=== PATIENT | female | born 1950 | race Caucasian/White ===

== ENCOUNTER 2017-01-14 11:12 | Emergency (ER) | payer MEDICARE ==
[2017-01-14 12:03] LABS: Mean Cell Volume 90.1 fl (78-100); Mean Corpuscular Hemoglobin 29.6 pg (26-32); Mean Platelet Volume 12.6 fl (6-9.5); Platelet Count 213 K/mm3 (150-450); Red Blood Count 4.46 M/mm3 (4.1-5.4); Red Cell Distribution Width 12.7 % (11.5-14.0); White Blood Count 5.5 K/mm3 (4.0-10.5)
[2017-01-14] MEDS ORDERED: Sodium Chloride 0.9% 1000 ML 1,000 ML IV STA (12:04)
--- NOTE | 2017-01-14 12:04 | ERPHSYRPT ---
- History of Present Illness Time Seen by Provider: 01/14/17 11:55 Source: patient Exam Limitations: no limitations Patient Subjective Stated Complaint: on golfcart to go to [employer] by [place] and she just passed out did not hit her head and was not unconscious for extended period of time. she simply go out and then comes right back too Triage Nursing Assessment: patient is awake nad talking, behavior appropriate for her normal, able to ambulate with assistance. lung soudns clear, pulses equal bilateral radius Physician History: 66-year-old white female with history of diabetes hyperglycemia hypothyroidism GERD, anxiety, depression iron deficiency anemia, mentally handicapped Brought by medics patient apparently was on a parade float when she had a brief episode of syncope where she leaned her head backwards for a second and then sat back up. Patient did not fall did not hit her head. Patient's caregiver states that the patient has had episodes such as this many times and has been worked up many times and this is essentially normal thing for her. Patient has not had any fever she is not otherwise ill. Patient does move all extremities to commands and answers questions she denies any pain. Past medical history includes diabetes type 2, hyperglycemia, hypothyroidism, GERD, anxiety, depression, R deficiency anemia, patient is mentally handicapped Timing/Duration: today (just prior to arrival) Severity: mild Modifying Factors: Improves With: nothing Associated Symptoms: syncope, No nausea, No vomiting, No abdominal pain, No shortness of breath, No heartburn, No diaphoresis, No cough, No chills, No chest pain, No fever, No headaches, No loss of appetite, No malaise, No rash, No seizure, No weakness Allergies/Adverse Reactions: fluoxetine HCl [From Prozac] Allergy (Verified 01/27/15 08:40) haloperidol [From Haldol] Allergy (Verified 01/27/15 08:40) haloperidol lactate [From Haldol] Allergy (Verified 01/27/15 08:40) Home Medications: Ascorbate Calcium [Vitamin C] 500 mg PO DAILY 02/20/14 [History] Clozapine 200 mg PO HS 02/20/14 [History] Divalproex Sodium [Depakote ER] 500 mg PO TID 02/20/14 [History] Levothyroxine Sodium 50 Mcg [Synthroid 50 Mcg] 50 mcg PO DAILY 02/20/14 [ History] Metformin HCl 500 mg [Glucophage 500 MG] 500 mg PO BID 02/20/14 [History] Senna 8.6 mg [Senokot 8.6 mg] 8.6 mg PO DAILY 02/20/14 [History] Venlafaxine HCl [Effexor Xr] 300 mg PO DAILY 02/20/14 [History] Clozapine 100 mg PO DAILY 06/17/14 [History] Polyethylene Glycol 3350 [Glycolax] 119 gm PO DAILY 06/17/14 [History] Hx Tetanus, Diphtheria Vaccination/Date Given: Yes Hx Influenza Vaccination/Date Given: Yes Hx Pneumococcal Vaccination/Date Given: Yes Immunizations Up to Date: Yes - Review of Systems Constitutional: No Fever, No Chills Eyes: No Symptoms Ears, Nose, & Throat: No Symptoms Respiratory: No Cough, No Dyspnea Cardiac: Syncope, No Chest Pain, No Edema Abdominal/Gastrointestinal: No Abdominal Pain, No Nausea, No Vomiting, No Diarrhea Genitourinary Symptoms: No Dysuria Musculoskeletal: No Back Pain, No Neck Pain Skin: No Symptoms, Cellulitis, Decubiti Neurological: Other (brief syncopal episode) Psychological: No Symptoms Endocrine: No Symptoms All Other Systems: Reviewed and Negative - Past Medical History Pertinent Past Medical History: Yes Neurological History: Other ENT History: No Pertinent History Cardiac History: No Pertinent History Respiratory History: No Pertinent History Endocrine Medical History: Diabetes Type II, Hypoglycemia, Hypothyroidism, Other Musculoskeletal History: No Pertinent History GI Medical History: GERD History: No Pertinent History Psycho-Social History: Anxiety, Depression Female Reproductive Disorders: No Pertinent History Other Medical History: IRON DEFICENCY ANEAMIA. MENTALLY HANDICAPED - Past Surgical History Past Surgical History: Yes Neuro Surgical History: No Pertinent History Cardiac: No Pertinent History Respiratory: No Pertinent History Gastrointestinal: No Pertinent History Genitourinary: No Pertinent History Musculoskeletal: No Pertinent History Female Surgical History: No Pertinent History - Social History Smoking Status: Never smoker Exposure to second hand smoke: No Alcohol Use: None Drug Use: none Patient Lives Alone: No Significant Family History: no pertinent family hx - Female History Hx Now: No - Nursing Vital Signs Nursing Vital Signs: Initial Vital Signs Temperature 96.3 F 01/14/17 11:13 Pulse Rate 85 01/14/17 11:13 Respiratory Rate 18 01/14/17 11:13 Blood Pressure 104/60 01/14/17 11:13 O2 Sat by Pulse Oximetry 96 01/14/17 11:13 Pain Scale Pain Intensity 0 - Physical Exam General Appearance: no apparent distress, alert Eye Exam: PERRL/EOMI, eyes nml inspection Ears, Nose, Throat Exam: normal ENT inspection, TMs normal, pharynx normal, moist mucous membranes Neck Exam: normal inspection, non-tender, supple, full range of motion Respiratory Exam: normal breath sounds, lungs clear, No respiratory distress Cardiovascular Exam: regular rate/rhythm, normal heart sounds, normal peripheral pulses Gastrointestinal/Abdomen Exam: soft, normal bowel sounds, No tenderness, No mass Back Exam: normal inspection, normal range of motion, No CVA tenderness, No vertebral tenderness Extremity Exam: normal inspection, normal range of motion, pelvis stable Neurologic Exam: alert, cooperative, crisis nurse II-XII nml as tested, other (patient is alert oriented to herself full range of motion all extremities, cranial nerves II through XII are intact, soda drier feeder are equal 5 over 5, normal finger to nose sensation intact to all the extremies, no facial droop), No oriented x 3 ( patient is oriented to herself) Skin Exam: normal color, warm, dry, No rash Lymphatic Exam: No adenopathy SpO2 Interpretation: normal (96%) SpO2: 96 Oxygen Delivery: Room Air - Course Nursing assessment & vital signs reviewed: Yes EKG Interpreted by Me: RATE (84 bpm), Sinus Rhythm, NORMAL AXIS, Other (EKG: Normal sinus rhythm, 84 beats per minute, normal axis, no acute ST or T wave changes, essentially normal EKG) Ordered Tests: Active Orders 24 hr Category Date Time Status Accucheck STAT Care 01/14/17 11:58 Active EKG-ER Only STAT Care 01/14/17 11:58 Active Orthostatic Vital Signs STAT Care 01/14/17 11:58 Active BMP Stat Lab 01/14/17 11:45 Completed CBC W DIFF Stat Lab 01/14/17 11:45 Completed Manual Differential NC Stat Lab 01/14/17 11:45 Completed Medication Summary Generic Name Dose Route Start Last Admin Trade Name Freq PRN Reason Stop Dose Admin Sodium Chloride 1,000 mls @ 999 mls/hr 01/14/17 12:04 01/14/17 12:09 Sodium Chloride 0.9% 1000 Ml IV 01/14/17 13:04 999 mls/hr .[id number] STA Administration Discontinued Medications Generic Name Dose Route Start Last Admin Trade Name Amanda PRN Reason Stop Dose Admin Sodium Chloride Confirm 01/14/17 12:08 Sodium Chloride 0.9% 1000 Ml Administered 01/14/17 12:09 Dose 1,000 mls @ ud .ROUTE .STK-MED ONE Lab/Rad Data: Laboratory Result Diagrams 01/14/17 11:45 01/14/17 11:45 Laboratory Results 01/14/17 01/14/17 Range/Units 11:45 11:45 WBC 5.5 (4.0-10.5) K/mm3 RBC 4.46 (4.1-5.4) M/mm3 Hgb 13.2 (12.0-16.0) gm/dl Hct 40.2 (35-47) % MCV 90.1 (78-100) fl MCH 29.6 (26-32) pg MCHC 32.8 (32-36) g/dl RDW 12.7 (11.5-14.0) % Plt Count 213 (150-450) K/mm3 MPV 12.6 H (6-9.5) fl Sodium 138 (136-145) mEq/L Potassium 3.8 (3.5-5.1) mEq/L Chloride 101 (98-107) mEq/L Carbon Dioxide 27.7 (21-32) mEq/L Anion Gap 12.8 (5-15) MEQ/L BUN 12 (9-20) mg/dL Creatinine 0.83 (0.55-1.30) mg/dl Estimated GFR > 60 ML/MIN Glucose 162 H (70-110) MG/DL Calcium 9.1 (8.5-10.1) mg/dL - Progress Progress: improved Progress Note: 01/14/17 12:34 This is a 66-year-old white female who is brought by medics with complaints of a brief syncopal episode while riding and afloat at the parade today. Patient apparently was riding in the float and she leaned her head back and was unresponsive for a few seconds she then sat back up she did not fall or injure herself. Patient's caregiver states that she has had multiple episodes of these she's had multiple workups secondary to this and this is nothing new for her. Currently the patient is alert and active she is in no acute distress. She has full range of motion of motions to extremities. Patient does have a history of diabetes high oboe seem he hypothyroidism GERD anxiety depression R deficiency anemia and of she is mentally handicapped. Patient on physical examination normal neurologic examination full range of motion to all extremities sensation to all extremities speech is normal normal for her. Finger to nose is within normal limits. Chemistry and CBC no acute changes EKG normal sinus rhythm 84 beats for minute normal EKG. Patient has been given 1 L of normal saline she is doing fine Will go ahead and discharge her. - Departure Time of Disposition: 12:36 Departure Disposition: Home Clinical Impression: Syncope Qualifiers: Syncope type: vasovagal syncope Qualified Code(s): R55 - Syncope and collapse Condition: Fair Critical Care Time: No Referrals: DEVORAH GARCIA [Primary Care Provider] - Additional Instructions: Return home. Plenty of fluids. Continue current medications and treatment. Follow-up with your family doctor. Return for acute distress or for severe symptoms..
[2017-01-14 12:06] LABS: ANION GAP 12.8 MEQ/L (5-15); BLOOD UREA NITROGEN 12 mg/dL (9-20); CHLORIDE 101 mEq/L (98-107); Carbon Dioxide 27.7 mEq/L (21-32); Glucose 162 MG/DL (70-110); Potassium 3.8 mEq/L (3.5-5.1); SODIUM 138 mEq/L (136-145)
[2017-01-14] MEDS ORDERED: Sodium Chloride 0.9% 1000 ML 1,000 ML ONE (12:08)
[2017-01-14 12:41] VITALS: BP 114/74; PULSE 77; O2SAT 99
[2017-01-14 13:35] LABS: BAND 1 % (0.0-2.0); Eosinophil 7 % (0.00-3.0); Platelet Estimate NORMAL (NORMAL); Total Cells Counted 100; Toxic Granulation 1+
== END 2017-01-14 12:47 | disposition home or self-care (01) ==
LOC: ED 11:12
DX: R55 Syncope and collapse (principal); E11.9 Type 2 diabetes mellitus without complications; E03.9 Hypothyroidism, unspecified; K21.9 Gastro-esophageal reflux disease without esophagitis; F41.9 Anxiety disorder, unspecified; D50.9 Iron deficiency anemia, unspecified; F79 Unspecified intellectual disabilities
CPT/HCPCS: 36415; 80048; 82962; 85025; 93005; 96360; 99284